=== PATIENT | female | born 1995 | race Caucasian/White ===

== ENCOUNTER 2023-05-16 15:02 | Emergency (ER) | payer OTHER, SELFPAY ==
[2023-05-16 15:06] VITALS: BP 110/63; PULSE 69; RESP 18; O2SAT 97
--- NOTE | 2023-05-16 15:15 | DI.RAD_ITS ---
Exam(s) XR SHOULDER RT COMPLETE 2+V EXAM: XR SHOULDER RT COMPLETE 2+V CLINICAL HISTORY: Shoulder pain. TECHNIQUE: 2D digital imaging was performed. Five views. COMPARISON: No exams were available for comparison FINDINGS: BONES: There is a mild deformity of the inferior glenoid without definite acute fracture line. The f indings could be related to an old injury. No bony destructive lesion is seen. JOINTS: Abnormal widening of the AC joint and acromial clavicular distance. SOFT TISSUE: Normal. IMPRESSION: Acromioclavicular joint separation. Deformity of inferior glenoid and could be related to an old injury. Clinical correlation recommende d. DATA REPOSITORY: RADIATION DOSE DELIVERED:
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
[2023-05-16] MEDS: Acetaminophen 500 MG TAB 1000 MG PO (16:51)
== END 2023-05-16 17:19 | disposition home or self-care (01) ==
PROVIDERS: Emergency Provider Emergency Medicine
DX: S43.101A Unspecified dislocation of right acromioclavicular joint, initial encounter (principal); V18.0XXA Pedal cycle driver injured in noncollision transport accident in nontraffic accident, initial encounter
CPT/HCPCS: 99283; 73030